=== PATIENT | male | born 1990 | race Two or more races ===

== ENCOUNTER 2023-03-01 12:02 | Emergency (ER) | payer OTHER ==
[~2023-03-01] VITALS: Ht 170.2 cm; Wt 102.1 kg
[2023-03-01] MEDS ORDERED: ATORVASTATIN CA10 MG PO (12:54)
[2023-03-01] MEDS ORDERED: ZESTRIL10 M1 PO (17:03)
== END 2023-03-01 17:04 | disposition home or self-care (01) ==
LOC: ER 12:02
DX: I10 Essential (primary) hypertension (principal); R00.2 Palpitations; G44.89 Other headache syndrome